=== PATIENT | female | born 1990 | race Caucasian/White ===

== ENCOUNTER 2024-01-31 02:04 | Emergency (ER) | payer SELFPAY ==
[2024-01-31 02:05] VITALS: BP 145/95; BMI 22.5
--- NOTE | 2024-01-31 04:43 | ED.GENMED ---
History of Present Illness
<GHULAM Barrera - Last Filed: 01/31/24 04:58>
General
Chief Complaint: Skin Problem
Source: patient
Exam Limitations: none
Time Seen by Provider: 01/31/24 04:35
Travel History
Have you had any contact with someone who has COVID-19?: No
Do you have any symptoms of coronavirus? Fever > 100 degrees, chills, cough, shortness of breath, sore throat, loss of taste or smell, muscle aches, or headache?: No
History of Present Illness
History of Present Illness:
33 year old female with hx of IVDU brought in by police for medical clearance with wound to the base of the R pinky x 2 months. Pt states she uses 'tranq'. Wound drained for 4 days. Reports associated pain, 8/10 and fevers and chills. Denies any
chest pain, SOB, trauma or injury to the hand. She has not taken anything for the pain.
Review of Systems
<GHULAM Barrera - Last Filed: 01/31/24 04:58>
Review of Systems
Constitutional: Reports no symptoms
EENT: Reports no symptoms
Respiratory: Reports no symptoms
Cardiac: Reports no symptoms
ABD/GI: Reports no symptoms
: Reports no symptoms
Musculoskeletal: Reports no symptoms
Skin: Reports other (wound to the base of R pinky finger)
Neurological: Reports no symptoms
Endocrine: Reports no symptoms
Hematologic/Lymphatic: Reports no symptoms
Psychiatric: Reports no symptoms
Phy Exam
<GHULAM Barrera - Last Filed: 01/31/24 04:58>
General Physical Exam
General Presentation: no apparent distress
General age: appears stated age
General Skin: warm and dry
General Habitus: normal
General Mental: appears intoxicated
General Hydration: dry mucous membranes
Cardiovascular Exam
Cardiovascular Exam: regular rate/rhythm, no edema, no gallop, no murmur and normal peripheral pulses
Pulmonary Exam
Pulmonary Exam: lungs clear, no respiratory distress, no rales, no crackles, no rhonchi, no wheezing and no cough
Musculoskeletal Exam
Musculoskeletal Exam: full ROM (R hand, R 5th digit) and neuro vasc intact (R fifth digit)
Skin Exam
Skin Exam: normal color, warm/dry and other (2.5 x 3 cm fluctuant mass to the fifth metacarpal joint on the dorsal aspect, no actve bleeding or discharge, there is moderate tenderness to palpation)
Psychiatric Exam
Psychiatric Exam: other (somnolent)
Scores
<GHULAM Barrera - Last Filed: 01/31/24 04:58>
COW Clinical Opiate Withdrawal Scale
Resting Pulse Rate: 80 or below
Sweating-over past 30min not from room temp or activity: No report of chills or flushing
Restlessness-observation during assessment: Able to sit still
Pupil Size: Pupils moderately dilated
Bone or Joint Aches: Mild diffuse discomfort
Runny Nose or Tearing-not accounted for by cold/allergies: Not present
GI Upset-over last 30min: No GI Symptoms
Tremor-observation of outstretched hands: No tremor
Yawning-observation during assessment: No yawning
Anxiety or Irritability: None
Gooseflesh Skin: Skin is smooth
Score: 3
Withdrawal Severity: Minimal Withdrawal
Course
<GHULAM Barrera - Last Filed: 01/31/24 04:58>
Vital Signs
Initial and Last Documented VS:
Initial Vital Signs
Temp Pulse Resp BP Pulse Ox
98.2 F 75 18 145/95 99
01/31/24 02:05 01/31/24 02:05 01/31/24 02:05 01/31/24 02:05 01/31/24 02:05
Last Documented Vital Signs
Temp Pulse Resp BP Pulse Ox
98.2 F 75 18 145/95 99
01/31/24 02:05 01/31/24 02:05 01/31/24 02:05 01/31/24 02:05 01/31/24 02:05
<Brooke Varner DO - Last Filed: 01/31/24 05:12>
Vital Signs
Initial and Last Documented VS:
Initial Vital Signs
Temp Pulse Resp BP Pulse Ox
98.2 F 75 18 145/95 99
01/31/24 02:05 01/31/24 02:05 01/31/24 02:05 01/31/24 02:05 01/31/24 02:05
Last Documented Vital Signs
Temp Pulse Resp BP Pulse Ox
98.2 F 75 18 145/95 99
01/31/24 02:05 01/31/24 02:05 01/31/24 02:05 01/31/24 02:05 01/31/24 02:05
<GHULAM Barrera - Last Filed: 01/31/24 04:58>
MDM/Problems Addressed
Differential Diagnosis Includes:
abscess, cellulitis, scar tissue
MDM/Problems Addressed:
33 year old female brought in by police with wound to R hand x 2 months.
Chronic conditions affecting care: Other (IVDU)
<GHULAM Barrera - Last Filed: 01/31/24 04:58>
*Critical Care Note
Total Time (30-74mins, 75-104mins- exclusive of procedures): Not Applicable
<Brooke Varner DO - Last Filed: 01/31/24 05:12>
*Pulse Oximetry
Patient hypoxic: no
ED Attending Note
<GHULAM Barrera - Last Filed: 01/31/24 04:58>
-
Portions of this chart may have been created with voice recognition software.� Occasional wrong word or��sound alike� substitutions may have occurred due to the inherent limitations of voice recognition software.
<Brooke Varner DO - Last Filed: 01/31/24 05:12>
ED Attending Note
Patient seen and examined by attending physician: Yes
I performed the substantive portion of visit, reviewed & personally made and approve the management plan that is documented in note by myself or CASIE.: Yes
I performed a history and physical exam of patient and discussed management with resident, I reviewed resident's note and agree with documented findings and plan of care.: Yes
ED Attending Note:
This is a 33-year-old woman who was brought to the ED by police for medical clearance for incarceration.
She has longstanding history of substance use disorder, IV drug use and notes a chronic soft tissue wound right dorsal hand overlying her fifth MCP joint that has been present for several months. Patient states she can intermittently squeeze pus
out of this wound but it generally does not change in size. She reports intermittent fevers but is currently afebrile. No recent antibiotic use. She denies recent drug use/venipuncture to the right hand.
She takes no prescription medications on a daily basis.
She denies risk of .
She currently believes she is in withdrawal and is free questing gabapentin, Klonopin, clonidine. She declines Subutex.
GENERAL: 33-year-old woman appears somewhat older than stated age. Lying on stretcher sound asleep, awakens with verbal stimuli. Once awake she is moderately sedate. Vital signs within normal limits. Afebrile.
EYE: Pupils are equal, mildly dilated, briskly reactive to light. Anicteric
NECK: Supple, nontender, no meningismus, no significant adenopathy.
ENT: oral mucosa is moist. No rhinorrhea. No nasal congestion.
CARDIAC: Regular rate and rhythm. no murmur.
LUNGS: Clear breath sounds bilaterally, no acute respiratory distress, no wheezes/rales/rhonchi
ABDOMEN: Soft, nondistended, without focal tenderness, normoactive BS.
NEUROLOGICAL: Moderately drowsy, oriented x 3, no focal neuro deficits.
SKIN: Warm and dry, normal color, no rash. The right dorsal hand has a 2 cm raised minimally firm, mobile nodule that is very minimally erythematous with a minute central opening that is dry. There is no drainage. There is no surrounding
erythema, no fluctuance, no lymphangitis. There is full digit range of motion without difficulty.
MUSCULOSKELETAL: No C/C/E. peripheral pulses are full and equal b/l. Minimal local tenderness right dorsal hand.
PSYCH: Intermittently cantankerous, belligerent and demanding.
Patient presents with chronic nodular wound right dorsal hand.
She does have history of IV drug use and thus nodule may be a smoldering skin abscess in nature versus chronic scarring. There is no evidence of cellulitis nor acute abscess requiring incision and drainage. There is no ulcerations. She is
afebrile. Vital signs within normal limits.
COWS score at the most is 3 signifying only mild withdrawal. No indication for medication at this time.
No indication for laboratory studies nor radiologic studies.
Will initiate a 10-day course of doxycycline for potential smoldering skin abscess.
Otherwise she is medically stable and cleared for incarceration. Discharged in the care of police.
Discharge Plan
Departure
Patient Disposition: Long Term
Date of Disposition: 01/31/24
Time of Disposition: 04:55
Condition: Good
Discharge Problem:
chronic wound right hand, Medical clearance for incarceration
Instructions: Skin Abscess
Prescriptions:
New
doxycycline monohydrate 100 mg capsule
100 mg PO BID Qty: 20 1RF
Referrals:
UNKNOWN - PT DOES,NOT KNOW [Family Provider] -
Activity Restrictions/Additional Instructions:
Jocelin presents with chronic appearing wound right dorsal hand that I suspect is chronic scar tissue formation. There may be an element of focal skin infection/subacute abscess thus recommend a 10-day course of doxycycline.
She is otherwise medically stable and cleared for incarceration. There is no evidence of acute opioid withdrawal. COWS score of 3.
She does report ongoing substance use disorder, IV drug use thus recommend initiation of your opioid withdrawal protocol.
Interventions
Interventions:
*Risk Screen - Suicide Last Done: 01/31/24 02:05
*General Assessment Last Done: 01/31/24 02:05
*Neglect/Abuse Screening Last Done: 01/31/24 02:05
Discharge Date and Time
Print Language: NAURUAN
== END 2024-01-31 05:15 ==
LOC: EMR 02:04
PROVIDERS: EMERGENCY PHYSICIAN Emergency Medicine
DX: Z02.89 Encounter for other administrative examinations (principal); S61.206A Unspecified open wound of right little finger without damage to nail, initial encounter; X58.XXXA Exposure to other specified factors, initial encounter; R40.0 Somnolence; Z65.3 Problems related to other legal circumstances; F19.10 Other psychoactive substance abuse, uncomplicated
CPT/HCPCS: 99283